=== PATIENT | male | born 1955 | race Caucasian/White ===

== ENCOUNTER 2020-01-26 13:56 | Emergency (ER) | payer MEDICAID, MEDICARE, OTHER ==
[~2020-01-26] VITALS: Ht 177.8 cm; Wt 98.7 kg
[~2020-01-26 13:56] MED LIST: ANAS1TAB47 PO; CITA10TA8 PO; CITA40TA12 PO; DOCU-150 PO; OLME40TA12 PO; OXYC1TAB15 PO; TEST100V2 IM; TEST2.5G9 TD
[2020-01-26] MEDS ORDERED: LOSARTAN 25 MG TABLET. PO ONE (14:45)
--- NOTE | 2020-01-26 14:53 | PHYS DOC ---
Past History Past Medical History: No Pertinent History Additional Past Surgical Histo: AVM clipping Alcohol Use: None Adult General Chief Complaint Chief Complaint: HYPERTENSION HPI HPI 64-year-old male presents with concern about hypertension, dizziness, and intermittent chest discomfort. He tells me that the chest discomfort is when he has a cough. He is mostly here because his blood pressure has been elevated. The patient's primary care physician moved away from the area and he has not established with a new one yet. His) losartan. His blood pressures in the 160s and 170s. He had one reading in the 180s. He has been checking it at home with the automatic bicep cuff. His chest discomfort only seems to happen with coughing. He also has had abdominal girth that he believes is fairly sudden. He not sure if he is retaining water or just bloated. He denies lower extremity swelling. He has residual weakness on the right upper and lower extremities from a previous history in his 40s. He denies fever or chills. Review of Systems Review of Systems Constitutional: Hypertension. Denies fever or chills [] Eyes: Denies change in visual acuity, redness, or eye pain [] HENT: Denies nasal congestion or sore throat [] Respiratory: Cough with shortness of breath [] Cardiovascular: No additional information not addressed in HPI [] GI: Denies abdominal pain, nausea, vomiting, bloody stools or diarrhea [] : Denies dysuria or hematuria [] Musculoskeletal: Denies back pain or joint pain [] Integument: Denies rash or skin lesions [] Neurologic: Intermittent dizziness. Denies headache, focal weakness or sensory changes [] Endocrine: Denies polyuria or polydipsia [] All other systems were reviewed and found to be within normal limits, except as documented in this note. Current Medications Current Medications Current Medications Medications (Trade) Dose Ordered Sig/Suleiman Start Time Stop Time Status Last Admin Dose Admin Losartan Potassium (Cozaar) 25 mg 1X ONCE 01/26/20 14:45 01/26/20 14:46 DC Allergies Allergies Allergies Coded Allergies Type Severity Reaction Last Updated Verified No Known Drug Allergies 02/24/16 No Physical Exam Physical Exam Constitutional: Well developed, well nourished, no acute distress, non-toxic appearance. [] HENT: Normocephalic, atraumatic, bilateral external ears normal, oropharynx moist, no oral exudates, nose normal. [] Eyes: PERRLA, EOMI, conjunctiva normal, no discharge. [] Neck: Normal range of motion, no tenderness, supple, no stridor. [] Cardiovascular: Heart rate regular rhythm, no murmur [] Lungs & Thorax: Bilateral breath sounds clear to auscultation [] Abdomen: Bowel sounds normal, soft, no tenderness, no masses, no pulsatile masses. [] Skin: Warm, dry, no erythema, no rash. [] Back: No tenderness, no CVA tenderness. [] Extremities: No tenderness, no cyanosis, no clubbing, ROM intact, no edema. [] Neurologic: Alert and oriented X 3, decreased strength on the right upper extremity. [] Psychologic: Affect normal, judgement normal, mood normal. [] Current Patient Data Vital Signs Vital Signs Date Time Temp Pulse Resp B/P (MAP) Pulse Ox O2 Delivery O2 Flow Rate FiO2 01/26/20 14:11 98.2 76 18 164/109 (127) 96 Room Air EKG EKG Sinus rhythm, rate 64, leftward axis, no ST elevation or depression[] Radiology/Procedures Radiology/Procedures [] Impressions: CT scan of the head without contrast 01/26/2020 Clinical History: TIA. Technique: Unenhanced, contiguous, 5 mm axial sections were obtained through the head. One or more of the following individualized dose reduction techniques were utilized for this study: 1. Automated exposure control. 2. Adjustment of the mA and/or kV according to patient size. 3. Use of iterative reconstruction technique. Findings: No previous studies are available for comparison. The patient is post left frontal parietal craniotomy. An area of encephalomalacia is seen involving the posterior left frontal lobe. There is generalized parenchymal atrophy. No acute parenchymal abnormality is seen. No extra-axial fluid collection is noted. No skull fracture is seen. Impression: No acute intracranial abnormality is seen. Electronically signed by: Zay Weaver MD (01/26/2020 2:53 PM) [facility] [place] DICTATED AND SIGNED BY: ZAY WEAVER MD DATE: 01/26/20 1453 CC: RAFITA GUEVARA DO; PÉREZ LEIJA DO ~ CHEST PA LATERAL History: Chest pain, tightness, dizziness Comparison: 01/20/2016 CT chest without contrast. Findings: Frontal and lateral views of the chest were obtained. The cardiomediastinal silhouette is normal. Pulmonary vasculature is normal. The lungs are clear. No pleural effusion or pneumothorax is seen. There is no acute bone abnormality. IMPRESSION: No acute cardiopulmonary process. Electronically signed by: Alfonso Valladares MD (01/26/2020 3:16 PM) [id number] DICTATED AND SIGNED BY: ALFONSO VALLADARES MD DATE: 01/26/20 1516 CC: RAFITA GUEVARA DO; PÉREZ LEIJA DO ~ Course & Med Decision Making Course & Med Decision Making Pertinent Labs and Imaging studies reviewed. (See chart for details) Patient's EKG is unremarkable. His troponin is negative. His labs are unremarkable except for his elevated liver enzymes. I have given him 25 mg of losartan in the ED. His blood pressure is improved. We'll discharge him on a 1 month supply of all started 25 mg until he gets into his department care physician. He is stable for discharge at this time. [] Dragon Disclaimer Dragon Disclaimer This electronic medical record was generated, in whole or in part, using a voice recognition dictation system. Departure Departure: Impression: Primary Impression: Hypertension Disposition: HOME, SELF-CARE Condition: STABLE Referrals: RAFITA GUEVARA DO (PCP) Patient Instructions: Hypertension, [id number] Losartan Potassium (LOSARTAN POTASSIUM ) 25 Mg Tablet 25 MG PO DAILY for HYPERTENSION for 30 Days, #30 TAB Prov: PÉREZ LEIJA DO 01/26/20 Problem Qualifiers Primary Impression: Hypertension Hypertension type: essential hypertension Qualified Codes: I10 - Essential (primary) hypertension PÉREZ LEIJA DO Jan 26, 2020 14:53
[2020-01-26 14:56] LABS: BASO # 0.1 x10^3/uL (0.0-0.2); BASO % 1 % (0-3); CALCIUM 8.9 mg/dL (8.5-10.1); CREATININE 1.2 mg/dL (0.7-1.3); EOS # 0.1 x10^3/uL (0.0-0.7); EOS % 2 % (0-3); HEMATOCRIT 45.5 % (39.0-53.0); HEMOGLOBIN 15.3 g/dL (13.0-17.5); LYMPH # 2.2 x10^3/uL (1.0-4.8); LYMPH % 34 % (24-48); MEAN CORPUSCULAR HEMOGLOBIN 29 pg (25-35); MEAN CORPUSCULAR HGB CONC 34 g/dL (31-37); MEAN CORPUSCULAR VOLUME 86 fL (79-100); MONO # 0.5 x10^3/uL (0.0-1.1); MONO % 7 % (0-9); NEUT # 3.6 x10^3uL (1.8-7.7); NEUT % 56 % (31-73); PLATELET COUNT 225 x10^3/uL (140-400); POTASSIUM 4.1 mmol/L (3.5-5.1); RED BLOOD COUNT 5.28 x10^6/uL (4.30-5.70); RED CELL DISTRIBUTION WIDTH 14.3 % (11.5-14.5); WHITE BLOOD COUNT 6.4 x10^3/uL (4.0-11.0)
--- NOTE | 2020-01-26 14:56 | RAD ---
CT scan of the head without contrast 01/26/2020 Clinical History: TIA. Technique: Unenhanced, contiguous, 5 mm axial sections were obtained through the head. One or more of the following individualized dose reduction techniques were utilized for this study: 1. Automated exposure control. 2. Adjustment of the mA and/or kV according to patient size. 3. Use of iterative reconstruction technique. Findings: No previous studies are available for comparison. The patient is post left frontal parietal craniotomy. An area of encephalomalacia is seen involving the posterior left frontal lobe. There is generalized parenchymal atrophy. No acute parenchymal abnormality is seen. No extra-axial fluid collection is noted. No skull fracture is seen. Impression: No acute intracranial abnormality is seen. Electronically signed by: Zay Weaver MD (01/26/2020 2:53 PM) [facility] [place]
[2020-01-26 15:02] LABS: ALBUMIN 3.6 g/dL (3.4-5.0); ALBUMIN/GLOBULIN RATIO 0.9 (1.0-1.7); TOTAL BILIRUBIN 0.7 mg/dL (0.2-1.0); TOTAL PROTEIN 7.7 g/dL (6.4-8.2)
--- NOTE | 2020-01-26 15:20 | RAD ---
CHEST PA LATERAL History: Chest pain, tightness, dizziness Comparison: 01/20/2016 CT chest without contrast. Findings: Frontal and lateral views of the chest were obtained. The cardiomediastinal silhouette is normal. Pulmonary vasculature is normal. The lungs are clear. No pleural effusion or pneumothorax is seen. There is no acute bone abnormality. IMPRESSION: No acute cardiopulmonary process. Electronically signed by: Alfonso Mendoza MD (01/26/2020 3:16 PM) [id number]
[2020-01-26 15:38] LABS: BACTERIA,URINE 0 /HPF (0-FEW); BILIRUBIN,URINE NEG (NEG); CLARITY,URINE CLEAR; COLOR,URINE YELLOW; GLUCOSE,URINE NEG (NEG); NITRITE,URINE NEG (NEG); SQUAMOUS EPITHELIAL CELL,UR OCC /LPF; UROBILINOGEN,URINE 0.2 mg/dL (0.2 mg/dL); WBC,URINE OCC /HPF (0-4)
[2020-01-26] MEDS ORDERED: LOSA25TA11 PO (16:14)
[2020-01-26 16:19] VITALS: BP 144/75
--- NOTE | 2020-01-26 16:51 | EKG ---
[address] [address] Test Date: 2020-01-26 Test Time: 14:52:15 Pat Name: LEO ORTIZ Department: Room: Gender: M Computer Repairer: : 1955 Requested By: PÉREZ LEIJA Order Number: [id number] Reading MD: Measurements Intervals [place] Rate: 64 P: 31 WI: 156 QRS: -25 QRSD: 92 T: 34 QT: 402 QTc: 419 Interpretive Statements SINUS RHYTHM LEFTWARD AXIS R-S TRANSITION ZONE IN V LEADS DISPLACED TO THE LEFT OTHERWISE NORMAL ECG RI6.01 No previous ECG available for comparison
== END 2020-01-26 16:21 | disposition home or self-care (01) ==
LOC: ER 13:56
DX: I10 Essential (primary) hypertension (principal); R42 Dizziness and giddiness; R07.89 Other chest pain; R06.02 Shortness of breath; R53.1 Weakness; Z98.890 Other specified postprocedural states
CPT/HCPCS: 36415; 70450; 71046; 80053; 81001; 84484; 85025; 93005; 99285